=== PATIENT | female | born 1970 | race Hispanic/Latino ===

== ENCOUNTER 2022-09-06 04:07 | Emergency (ER) | payer SELFPAY ==
[2022-09-06] MEDS ORDERED: Orphenadrine Citrate 60 MG/2 ML VIAL ONE (05:05)
== END 2022-09-06 06:31 | disposition home or self-care (01) ==
LOC: ERS 04:07
DX: M62.830 Muscle spasm of back (principal); E11.9 Type 2 diabetes mellitus without complications; E78.5 Hyperlipidemia, unspecified
CPT/HCPCS: 72125; 96372; J2360

== ENCOUNTER 2022-12-27 09:20 | Observation (INO) | payer SELFPAY ==
[2022-12-27 09:49] LABS: #Monocytes 0.4 thou/uL (0.11-0.59); #Neutrophils 3.6 thou/uL (1.40-6.50); %Basophils 0.6 % (0.0-1.0); %Eosinophils 0.6 % (0.0-10.0); %Lymphocytes 38.6 % (21.0-51.0); %Monocytes 6.4 % (0.0-10.0); %Neutrophils 53.5 % (42.0-75.0); Hemoglobin 15.2 g/dL (12.0-16.0); Mean Corpuscular HGB CONC 33.6 g/dL (32.0-36.0); Mean Corpuscular Hemoglobin 28.7 pg (27.0-31.0); Mean Corpuscular Volume 85.3 fl (78.0-98.0); Mean Platelet Volume 9.1 fL (7.4-10.4); Platelet Count 200 10x3/uL (130-400); RBC Distribution Width 13.7 % (11.5-14.5); White Blood Cell (WBC) Count 6.8 10x3/uL (4.8-10.8)
[2022-12-27 10:13] LABS: Phosphorus 3.3 mg/dL (2.3-4.7)
[2022-12-27 10:17] LABS: ALT (SGPT) 20 U/L (8-55); AST (SGOT) 18 U/L (5-34); Alkaline Phosphatase 121 U/L (40-110); Anion Gap 15 mmol/L (10-20); BUN (Urea Nitrogen) 12 mg/dL (9.8-20.1); Bilirubin, Total 0.6 mg/dL (0.2-1.2); Calc. Creatinine Clearance 0 mL/min (70-130); Calcium 9.3 mg/dL (7.8-10.44); Carbon Dioxide 24 mmol/L (22-29); Chloride 102 mmol/L (98-107); Estimated GFR 81; Globulin 3.6 g/dL (2.4-3.5); Glucose 258 mg/dL (70-105); Magnesium 1.9 mg/dL (1.6-2.6); Protein, Total 7.6 g/dL (6.0-8.3); Sodium 137 mmol/L (136-145)
[2022-12-27 11:06] LABS: Actual Bicarbonate (HCO3v) 26.2 mEq/L (22-28); Analyzer IN Cardio ER; Base Excess 0.1 mEq/L (-2.0 to +3.0); Chloride (VBG) 100 mmol/L (98-106); Hematocrit-VBG 44 % (36.0-47.0); Hemoglobin (Hb) 15.1 g/dL (11.7-16.0); Potassium (VBG) 3.88 mmol/L (3.70-5.30); Sodium 131.3 mmol/L (133-146); pH (venous) 7.357 (7.32-7.43)
[2022-12-27] MEDS ORDERED: Aspirin Chewable 81 MG TAB ONE (12:14)
[2022-12-27] MEDS ORDERED: Dextrose 5% in Water 1,000 ML IV PRN (12:43)
[2022-12-27] MEDS ORDERED: Dextrose 50% Abboject 50 ML SYRINGE SLOW IVP PRN (12:43)
[2022-12-27] MEDS ORDERED: Glucagon 1 MG/ML KIT IM PRN (12:43)
[2022-12-27] MEDS ORDERED: HumaLOG 300 UNITS/3 ML VIAL SC PRN (12:44)
[2022-12-27] MEDS ORDERED: hydrALAZINE 20 MG/ML VIAL SLOW IVP PRN (12:44)
[2022-12-27] MEDS ORDERED: Metoclopramide HCl 10 MG/2 ML VIAL IVP PRN (12:46)
[2022-12-27] MEDS ORDERED: Nitroglycerin 0.4 MG TAB (25 Tab Bottle) SL PRN (12:56)
[2022-12-27] MEDS ORDERED: Sodium Chloride 0.9% 1,000 ML IV SCH (13:00)
[2022-12-27 13:47] LABS: Cholesterol 247 mg/dl (< 200 Desired); HDL Cholesterol 41 mg/dL (>60 Neg Risk); Triglycerides 531 mg/dL (Less than 150)
[2022-12-27 13:49] LABS: Troponin I Less than 0.010 ng/mL (< 0.028)
[2022-12-27 13:56] LABS: Hemoglobin A1c 10.4 % (4.0-6.0)
[2022-12-27 14:47] VITALS: BMI 37.3
[2022-12-27 17:56] LABS: Troponin I Less than 0.010 ng/mL (< 0.028)
[2022-12-27] MEDS: Atorvastatin Calcium 40 MG TAB PO SCH (20:59)
[2022-12-27] MEDS: Acetaminophen 325 MG TAB PO PRN (20:59)
[2022-12-28 05:30] LABS: Anion Gap 11 mmol/L (10-20); BUN (Urea Nitrogen) 9 mg/dL (9.8-20.1); Calc. Creatinine Clearance 131 mL/min (70-130); Calcium 8.9 mg/dL (7.8-10.44); Carbon Dioxide 27 mmol/L (22-29); Chloride 101 mmol/L (98-107); Estimated GFR 94; Glucose 221 mg/dL (70-105); Potassium 3.9 mmol/L (3.5-5.1); Sodium 135 mmol/L (136-145)
[2022-12-28] MEDS: Aspirin 81 mg Enteric Coated Tablet PO SCH (08:28)
[2022-12-28] MEDS: Acetaminophen 325 MG TAB PO PRN ×2 (08:29→13:07)
[2022-12-28] MEDS ORDERED: ALPRAZolam 0.5 MG TAB PO PRN (10:15)
[2022-12-28] MEDS ORDERED: Ketorolac Tromethamine 30 MG/ML VIAL IVP SCH (12:00)
[2022-12-28] MEDS: HumaLOG 300 UNITS/3 ML VIAL SC PRN (13:06)
[2022-12-28] MEDS: metFORMIN 500 MG TAB PO SCH (18:02)
[2022-12-28] MEDS: Ketorolac Tromethamine 30 MG/ML VIAL IVP SCH (18:02)
[2022-12-28] MEDS: Atorvastatin Calcium 40 MG TAB PO SCH (21:16)
[2022-12-29] MEDS: Ketorolac Tromethamine 30 MG/ML VIAL IVP SCH ×4 (00:20→12:54)
[2022-12-29 08:34] VITALS: BP 133/75; TEMP 98.3
[2022-12-29] MEDS: metFORMIN 500 MG TAB PO SCH (08:52)
[2022-12-29] MEDS: Aspirin 81 mg Enteric Coated Tablet PO SCH (08:52)
[2022-12-29] MEDS ORDERED: Clopidogrel Bisulfate 75 MG TAB PO SCH (09:30)
[2022-12-29] MEDS: HumaLOG 300 UNITS/3 ML VIAL SC PRN (11:49)
== END 2022-12-29 12:40 | disposition home or self-care (01) ==
LOC: ERS 09:20 → ERHOLD 13:28 → 2NO 19:37
PROVIDERS: ADMIT Internal Medicine; ATTEND Family Medicine
DX: G45.9 Transient cerebral ischemic attack, unspecified (principal); E11.9 Type 2 diabetes mellitus without complications; I10 Essential (primary) hypertension; E78.5 Hyperlipidemia, unspecified; Z90.49 Acquired absence of other specified parts of digestive tract; R20.2 Paresthesia of skin; R07.89 Other chest pain; Z79.82 Long term (current) use of aspirin; Z79.899 Other long term (current) drug therapy; Z79.84 Long term (current) use of oral hypoglycemic drugs
CPT/HCPCS: 36415; 36416; 70450; 70551; 71045; 80048; 80053; 80061; 82010; 82805; 83036; 83735; 84100; 84443; 84484; 85025; 93005; 93306; 93880; 96360; 96361; 96374; 96376; G0378; J1815; J1885; J7050

== ENCOUNTER 2023-03-25 09:24 | Emergency (ER) | payer BC, SELFPAY ==
[2023-03-25 11:13] LABS: #Basophils 0.1 thou/uL (0.0-0.2); #Eosinphils 0.1 thou/uL (0.0-0.7); #Monocytes 0.4 thou/uL (0.11-0.59); #Neutrophils 2.4 thou/uL (1.40-6.50); %Eosinophils 1.3 % (0.0-10.0); %Lymphocytes 51.2 % (21.0-51.0); %Monocytes 6.8 % (0.0-10.0); %Neutrophils 39.5 % (42.0-75.0); Hematocrit 45.5 % (36.0-47.0); Mean Corpuscular Hemoglobin 28.7 pg (27.0-31.0); Mean Platelet Volume 9.4 fL (7.4-10.4); Platelet Count 216 10x3/uL (130-400); Red Blood Cell (RBC) Count 5.23 mill/uL (4.20-5.40); White Blood Cell (WBC) Count 6.1 10x3/uL (4.8-10.8)
[2023-03-25] MEDS ORDERED: Acetaminophen 500 MG TAB ONE (11:18)
[2023-03-25] MEDS ORDERED: Metoclopramide HCl 10 MG/2 ML VIAL ONE ×2 (11:18→13:24)
[2023-03-25] MEDS ORDERED: Meclizine HCl 25 MG TAB ONE ×2 (11:18→11:19)
[2023-03-25 11:35] LABS: ALT (SGPT) 25 U/L (8-55); AST (SGOT) 22 U/L (5-34); Albumin 3.9 g/dL (3.5-5.0); Alkaline Phosphatase 111 U/L (40-110); Anion Gap 11 mmol/L (10-20); BUN (Urea Nitrogen) 10 mg/dL (9.8-20.1); Bilirubin, Total 0.9 mg/dL (0.2-1.2); Calc. Creatinine Clearance 0 mL/min (70-130); Carbon Dioxide 27 mmol/L (22-29); Chloride 103 mmol/L (98-107); Estimated GFR 97; Globulin 3.2 g/dL (2.4-3.5); Glucose 177 mg/dL (70-105); Potassium 4.3 mmol/L (3.5-5.1); Protein, Total 7.1 g/dL (6.0-8.3); Sodium 137 mmol/L (136-145)
[2023-03-25 11:45] LABS: Troponin I Less than 0.010 ng/mL (< 0.028)
[2023-03-25 12:32] LABS: SARS-CoV-2 NAA Rapid Test Not Detected (NotDetected)
[2023-03-25] MEDS ORDERED: Ketorolac Tromethamine 30 MG/ML VIAL ONE (13:24)
[2023-03-25] MEDS ORDERED: Magnesium 2 GM/50 ML BAG (IN WATER) ONE (13:24)
== END 2023-03-25 15:00 | disposition home or self-care (01) ==
LOC: ERS 09:24
DX: R42 Dizziness and giddiness (principal); R51.9 Headache, unspecified; R04.0 Epistaxis; E11.9 Type 2 diabetes mellitus without complications; E78.5 Hyperlipidemia, unspecified; Z79.84 Long term (current) use of oral hypoglycemic drugs; Z20.822 Contact with and (suspected) exposure to COVID-19
CPT/HCPCS: 36415; 70450; 71045; 80053; 84484; 85025; 93005; 96365; 96366; 96368; 96375; J1885; J2765; J3475

== ENCOUNTER 2023-07-28 13:35 | Emergency (ER) | payer SELFPAY ==
[2023-07-28 14:43] LABS: #Basophils 0.1 thou/uL (0.0-0.2); #Eosinphils 0.2 thou/uL (0.0-0.7); #Monocytes 0.6 thou/uL (0.11-0.59); %Basophils 0.8 % (0.0-1.0); %Eosinophils 2.4 % (0.0-10.0); %Lymphocytes 38.7 % (21.0-51.0); %Monocytes 10.1 % (0.0-10.0); %Neutrophils 47.7 % (42.0-75.0); Hematocrit 44.8 % (36.0-47.0); Mean Corpuscular HGB CONC 33.5 g/dL (32.0-36.0); Mean Corpuscular Hemoglobin 29.1 pg (27.0-31.0); Mean Platelet Volume 9.6 fL (7.4-10.4); Platelet Count 196 10x3/uL (130-400); RBC Distribution Width 13.9 % (11.5-14.5); Red Blood Cell (RBC) Count 5.15 mill/uL (4.20-5.40); White Blood Cell (WBC) Count 6.3 10x3/uL (4.8-10.8)
[2023-07-28 14:57] LABS: PTT 27.1 sec (22.9-36.1); Prothrombin Time 13.6 sec (12.0-14.7)
[2023-07-28 14:59] LABS: ALT (SGPT) 20 U/L (8-55); AST (SGOT) 17 U/L (5-34); Albumin 3.9 g/dL (3.5-5.0); Alkaline Phosphatase 113 U/L (40-110); Anion Gap 13 mmol/L (10-20); BUN (Urea Nitrogen) 12 mg/dL (9.8-20.1); Calc. Creatinine Clearance 0 mL/min (70-130); Calcium 8.7 mg/dL (7.8-10.44); Carbon Dioxide 25 mmol/L (22-29); Chloride 97 mmol/L (98-107); Estimated GFR 81; Globulin 3.6 g/dL (2.4-3.5); Potassium 4.2 mmol/L (3.5-5.1); Protein, Total 7.5 g/dL (6.0-8.3); Sodium 131 mmol/L (136-145)
[2023-07-28 15:03] LABS: Glucose 437 mg/dL (70-105)
[2023-07-28 15:06] LABS: SARS-CoV-2 NAA Rapid Test DETECTED (NotDetected)
[2023-07-28 15:56] LABS: Troponin I Less than 0.010 ng/mL (< 0.028)
[2023-07-28 16:38] LABS: Actual Bicarbonate (HCO3v) 22.4 mEq/L (22-28); Base Excess -2.5 mEq/L (-2.0 to +3.0); Calcium, Ionized (venous) 1.08 mmol/L (1.16-1.32); Chloride (VBG) 96 mmol/L (98-106); Hematocrit-VBG 47 % (36.0-47.0); Hemoglobin (Hb) 16.1 g/dL (11.7-16.0); Potassium (VBG) 4.56 mmol/L (3.70-5.30); Sodium 133 mmol/L (133-146); pH (venous) 7.372 (7.32-7.43)
[2023-07-28 17:30] LABS: Lactic Acid 2.1 mmol/L (0.5-2.2)
[2023-07-28 18:19] LABS: Troponin I Less than 0.010 ng/mL (< 0.028)
== END 2023-07-28 18:28 | disposition home or self-care (01) ==
LOC: ERS 13:35
DX: U07.1 COVID-19 (principal); E11.65 Type 2 diabetes mellitus with hyperglycemia; R74.02 Elevation of levels of lactic acid dehydrogenase [LDH]; Z79.84 Long term (current) use of oral hypoglycemic drugs
CPT/HCPCS: 36415; 36416; 80053; 82010; 82805; 83605; 84484; 85025; 85610; 85730; 87040; 93005; 94760; 96360; 96361

== ENCOUNTER 2023-08-12 12:15 | Emergency (ER) | payer SELFPAY ==
[2023-08-12] MEDS ORDERED: Ibuprofen 800 MG TAB ONE (12:47)
== END 2023-08-12 13:04 | disposition home or self-care (01) ==
LOC: ERS 12:15
DX: S63.655A Sprain of metacarpophalangeal joint of left ring finger, initial encounter (principal); E11.9 Type 2 diabetes mellitus without complications; Z79.84 Long term (current) use of oral hypoglycemic drugs; X50.1XXA Overexertion from prolonged static or awkward postures, initial encounter; Y99.0 Civilian activity done for income or pay

== ENCOUNTER 2023-08-30 | Emergency (ER) | payer BC, SELFPAY ==
[2023-08-30] MEDS ORDERED: Ondansetron ODT 4 MG TAB ONE (00:43)
[2023-08-30] MEDS ORDERED: Acetaminophen 500 MG TAB ONE (00:51)
[2023-08-30 01:50] LABS: SARS-CoV-2 NAA Rapid Test Not Detected (NotDetected)
== END 2023-08-30 01:53 | disposition home or self-care (01) ==
LOC: ERS
DX: J10.1 Influenza due to other identified influenza virus with other respiratory manifestations (principal); E11.9 Type 2 diabetes mellitus without complications; Z79.84 Long term (current) use of oral hypoglycemic drugs
CPT/HCPCS: 99283; Q0162

== ENCOUNTER 2023-12-01 03:27 | Emergency (ER) | payer BC ==
[2023-12-01 04:53] LABS: #Basophils 0.06 10x3/uL (0.0-0.2); %Basophils 0.8 % (0.0-1.0); %Eosinophils 1.1 % (0.0-10.0); %Lymphocytes 39.1 % (21.0-51.0); %Monocytes 6.7 % (0.0-10.0); %Neutrophils 52.2 % (42.0-75.0); Hematocrit 43.7 % (36.0-47.0); Hemoglobin 14.9 g/dL (12.0-16.0); Mean Corpuscular HGB CONC 34.1 g/dL (32.0-36.0); Mean Corpuscular Hemoglobin 28.7 pg (27.0-31.0); Mean Platelet Volume 9.3 fL (7.4-10.4); Platelet Count 215 10x3/uL (130-400); RBC Distribution Width 13.8 % (11.5-14.5)
[2023-12-01 05:18] LABS: ALT (SGPT) 22 U/L (8-55); AST (SGOT) 18 U/L (5-34); Albumin 3.5 g/dL (3.5-5.0); Alkaline Phosphatase 93 U/L (40-110); Anion Gap 17 mmol/L (10-20); BUN (Urea Nitrogen) 9 mg/dL (9.8-20.1); Bilirubin, Total 0.8 mg/dL (0.2-1.2); Calc. Creatinine Clearance 0 mL/min (70-130); Calcium 9.2 mg/dL (7.8-10.44); Carbon Dioxide 23 mmol/L (22-29); Chloride 105 mmol/L (98-107); Estimated GFR 91; Globulin 3.9 g/dL (2.4-3.5); Glucose 165 mg/dL (70-105); Potassium 3.6 mmol/L (3.5-5.1); Protein, Total 7.4 g/dL (6.0-8.3); Sodium 141 mmol/L (136-145)
[2023-12-01] MEDS ORDERED: Ketorolac Tromethamine 30 MG (1 mL) VIAL ONE (05:44)
[2023-12-01] MEDS ORDERED: Lidocaine 4% Patch TD SCH (08:00)
[2023-12-01] MEDS ORDERED: prednisoLONE 10 MG ODT TAB ONE ×2 (08:40)
[2023-12-01] MEDS ORDERED: Orphenadrine Citrate 60 MG/2 ML VIAL ONE (08:40)
[2023-12-01] MEDS ORDERED: predniSONE 20 MG TAB ONE (08:42)
[2023-12-01 11:12] LABS: Bilirubin Negative (Negative); Blood, Urine Negative (Negative); Glucose, Urine (Dipstick) Negative (Negative); Ketone, Urine Trace mg/dL (Negative); Leukocyte Small (Negative); Nitrite Negative (Negative); Protein, Urine (Dipstick) Negative (Neg-Trace); Specific Gravity, Urine 1.025 (1.005-1.030)
[2023-12-01 11:24] LABS: Clarity Hazy (Clear)
[2023-12-01 11:42] LABS: Bacteria/HPF 4+ HPF (None Seen); CAUTI Indications for Culture Dysuria,urgency,freq; RBC/HPF 0-3 HPF (0-3); Squamous Epithelial 0-3 HPF (0-3); WBC/HPF 21-50 HPF (0-3)
[2023-12-01 11:56] LABS: Urine Culture Reflex Yes Yes
[2023-12-01] MEDS ORDERED: Transdermal Patch Removal TOP SCH (20:00)
== END 2023-12-01 11:34 | disposition home or self-care (01) ==
LOC: ERS 03:27
DX: M54.42 Lumbago with sciatica, left side (principal); M25.78 Osteophyte, vertebrae; I10 Essential (primary) hypertension; E11.9 Type 2 diabetes mellitus without complications; Z86.73 Personal history of transient ischemic attack (TIA), and cerebral infarction without residual deficits; Z75.8 Other problems related to medical facilities and other health care
CPT/HCPCS: 36415; 74176; 80053; 81001; 85025; 87077; 87086; 87186; 96372; 96374; J1885; J2360; J7512

== ENCOUNTER 2024-01-23 06:52 | Emergency (ER) | payer BC ==
[2024-01-23] MEDS ORDERED: diphenhydrAMINE 50 MG/ML VIAL ONE (07:28)
[2024-01-23] MEDS ORDERED: Famotidine 20 MG TAB ONE (07:28)
[2024-01-23] MEDS ORDERED: Dexamethasone 4 MG TAB ONE (07:29)
== END 2024-01-23 08:57 | disposition home or self-care (01) ==
LOC: ERS 06:52
DX: S50.861A Insect bite (nonvenomous) of right forearm, initial encounter (principal); L98.9 Disorder of the skin and subcutaneous tissue, unspecified; W57.XXXA Bitten or stung by nonvenomous insect and other nonvenomous arthropods, initial encounter
CPT/HCPCS: 96372; 99283; J1200; J8540

== ENCOUNTER 2024-06-15 17:15 | Emergency (ER) | payer SELFPAY ==
[2024-06-15] MEDS ORDERED: Famotidine 20 MG TAB ONE (21:51)
[2024-06-15] MEDS ORDERED: Loratadine 10 MG TAB PO SCH (22:00)
== END 2024-06-15 22:17 | disposition home or self-care (01) ==
LOC: ERS 17:15
DX: R21 Rash and other nonspecific skin eruption (principal); E11.9 Type 2 diabetes mellitus without complications; I10 Essential (primary) hypertension
CPT/HCPCS: 99282

== ENCOUNTER 2025-03-26 18:09 | Observation (INO) | payer OTHER ==
[~2025-03-26 18:09] MED LIST: Iopamidol-370 76% 500 ML MDV (1 ML CHARGE) ONE
[2025-03-26] MEDS ORDERED: Acetaminophen 500 MG TAB ONE (18:48)
[2025-03-26 18:58] LABS: #Basophils 0.05 10x3/uL (0.0-0.2); #Eosinophils 0.04 10x3/uL (0.0-0.7); #Monocytes 0.52 10x3/uL (0.11-0.59); #Neutrophils 3.41 10x3/uL (1.40-6.50); %Basophils 0.7 % (0.0-1.0); %Eosinophils 0.6 % (0.0-10.0); %Lymphocytes 42.9 % (21.0-51.0); %Monocytes 7.4 % (0.0-10.0); %Neutrophils 48.1 % (42.0-75.0); Hematocrit 44.3 % (36.0-47.0); Hemoglobin 14.8 g/dL (12.0-16.0); Mean Corpuscular Hemoglobin 28.0 pg (27.0-31.0); Mean Corpuscular Volume 83.7 fL (78.0-98.0); Platelet Count 189 10x3/uL (130-400); Red Blood Cell (RBC) Count 5.29 mill/uL (4.20-5.40); White Blood Cell (WBC) Count 7.07 10x3/uL (4.8-10.8)
[2025-03-26 19:12] LABS: INR-International Normal Ratio 1.0; PTT 27.8 sec (22.9-36.1); Prothrombin Time 13.6 sec (12.0-14.7)
[2025-03-26 19:13] LABS: ALT (SGPT) 29 U/L (Less than 34); AST (SGOT) 29 U/L (11-34); Albumin 3.8 g/dL (3.1-4.5); Alkaline Phosphatase 130 U/L (40-110); Anion Gap 16 mmol/L (10-20); BUN (Urea Nitrogen) 12 mg/dL (9.8-20.1); Bilirubin, Total 0.6 mg/dL (0.3-1.2); Calc. Creatinine Clearance 0 mL/min (70-130); Calcium 9.3 mg/dL (7.8-10.44); Carbon Dioxide 23 mmol/L (22-29); Chloride 100 mmol/L (98-107); Globulin 3.7 g/dL (2.4-3.5); Glucose 334 mg/dL (70-105); Magnesium 2.0 mg/dL (1.6-2.6); Potassium 4.3 mmol/L (3.5-5.1); Sodium 135 mmol/L (136-145)
[2025-03-26] MEDS ORDERED: Aspirin Chewable 81 MG TAB ONE (21:23)
[2025-03-26] MEDS ORDERED: hydrALAZINE 20 MG/ML VIAL SLOW IVP PRN (22:49)
[2025-03-26] MEDS ORDERED: Glucagon 1 MG/ML KIT IM PRN (22:52)
[2025-03-26] MEDS ORDERED: Dextrose 50% Abboject 50 ML SYRINGE SLOW IVP PRN (22:52)
[2025-03-27 00:52] VITALS: BMI 34.5
[2025-03-27 04:19] LABS: Cardiac Risk 5.9 (Less than 4.5); Cholesterol 190.0 mg/dl (< 200 Desired); HDL Cholesterol 32.0 mg/dL (>60 Neg Risk); LDL Cholesterol, Calculated 92.0 mg/dL; Triglycerides 332.0 mg/dL (Less than 150)
[2025-03-27] MEDS: Enoxaparin 40 MG (0.4 mL) SYRINGE SC SCH (10:24)
[2025-03-27 12:03] VITALS: TEMP 98.1
[2025-03-27 16:23] VITALS: BP 140/88
== END 2025-03-27 18:15 | disposition home or self-care (01) ==
LOC: ERS 18:09 → 2SE 21:53
PROVIDERS: ADMIT Internal Medicine; ATTEND Internal Medicine
PROC: B24BZZZ Ultrasonography of Heart with Aorta (ICD-10-PCS; principal; 2025-03-27)
DX: I63.9 Cerebral infarction, unspecified (principal); R29.702 NIHSS score 2; I10 Essential (primary) hypertension; E11.9 Type 2 diabetes mellitus without complications; E78.5 Hyperlipidemia, unspecified; Z90.49 Acquired absence of other specified parts of digestive tract; Z79.84 Long term (current) use of oral hypoglycemic drugs; Z79.899 Other long term (current) drug therapy
CPT/HCPCS: 36415; 36416; 70450; 70496; 70498; 70551; 71045; 80053; 80061; 83036; 83735; 83880; 84484; 85025; 85610; 85730; 93005; 93306; 96372; G0378; J1650; J1815; Q9967